=== PATIENT | female | born 1985 | race Caucasian/White ===

== ENCOUNTER 2016-07-22 21:17 | Emergency (ER) ==
[2016-07-22] MEDS ORDERED: DILAUDID 1 MG/ML SYRINGE IVP STA (21:22)
[2016-07-22] MEDS ORDERED: SODIUM CHLORIDE 1,000 ML IV STA (21:22)
[2016-07-22] MEDS ORDERED: PHENERGAN 25 MG/ML VIAL 25 MG in SODIUM CHLORIDE 50 ML IV STA (21:22)
[2016-07-22 21:27] VITALS: BP 144/85; TEMP 99; BMI 24.3
[2016-07-22 21:40] LABS: BASOPHILS % (AUTO) 0.4 % (0.0-3.0); EOSINOPHILS # (AUTO) 0.1 K/ul (0.0-0.7); HEMATOCRIT 41.7 % (37.0-47.0); HEMOGLOBIN 13.7 g/dl (12.0-16.0); IMMATURE GRANULOCYTE % (AUTO) 0.3 % (0.0-5.0); LYMPHOCYTES # (AUTO) 1.6 K/uL (0.60-3.4); LYMPHOCYTES % (AUTO) 20.2 (10.0-50.0); MEAN CORPUSCULAR HEMOGLOBIN 29.5 pg (27.0-31.0); MEAN CORPUSCULAR HGB CONC 32.9 (31.8-35.4); MEAN CORPUSCULAR VOLUME 89.9 fl (81.0-99.0); MONOCYTES # (AUTO) 0.8 K/uL (0.4-2.0); MONOCYTES % (AUTO) 9.6 (0-10); NEUTROPHILS # (AUTO) 5.4 K/ul (2.0-6.9); NEUTROPHILS % (AUTO) 68.5; PLATELET COUNT 239 10^3/uL (140-440); RED BLOOD COUNT 4.64 10^6/ul (4.20-5.40); WHITE BLOOD COUNT 7.89 K/ul (4.6-10.2)
[2016-07-22] MEDS ORDERED: PHENERGAN 25 MG/ML VIAL ONE (21:48)
[2016-07-22 21:52] LABS: SERUM PREGNANCY INTERNAL QC INTERNAL QC VALID
[2016-07-22 21:53] LABS: ADD URINE MICROSCOPIC YES; BILIRUBIN,URINE Negative (NEGATIVE); KETONES,URINE Negative (NEGATIVE); LEUKOCYTE ESTERASE ,URINE Negative (NEGATIVE); NITRITE,URINE Negative (NEGATIVE); PROTEIN,URINE Negative (NEGATIVE); URINE, BLOOD Trace-intact (NEGATIVE)
[2016-07-22 22:11] LABS: ALBUMIN 3.7 g/dL (3.4-5.0); ALBUMIN/GLOBULIN RATIO 1.16; ANION GAP 13.7; BILIRUBIN,TOTAL 0.47 mg/dL (0.00-1.20); BUN/CREATININE RATIO 11.68; CREATININE 0.77 mg/dL (0.60-1.30); POTASSIUM 3.7 mmol/L (3.5-5.10); TOTAL PROTEIN 6.9 g/dL (6.4-8.2)
--- NOTE | 2016-07-22 22:47 | CT ---
EXAM: CT scan abdomen pelvis with contrast HISTORY: Upper abdominal pain with nausea COMPARISON: CT scan abdomen pelvis 02/27/2014 FINDINGS: Contiguous axial images obtained through the abdomen pelvis following uneventful initiati on intravenous contrast utilizing 3-mm collimation. Sagittal and coronal reconstructions were image d and reviewed.. There are bilateral breast implants. The visualized lung bases are clear.. Gallb ladder is fluid filled without cholelithiasis. The liver, pancreas, spleen and adrenal glands have normal enhanced CT appearance. Kidneys excrete contrast in a normal fashion bilaterally. The abdom inal aorta is normal in course and caliber. Appendicolith in the distal appendix periappendiceal in flammatory change. There is umbilical hernia containing only fat.. Free fluid seen in the dependen t pelvis.. Bone windows reveals no evidence of lytic or blastic lesions. IMPRESSION: No acute intra-abdominal findings. Small amount free fluid seen in the dependent pelvis. Umbilical hernia containing only fat. There is an appendicolith within an otherwise normal appendix.
--- NOTE | 2016-07-22 23:20 | ED.PDOC ---
General ED Provider: Dr. ZACARIAS PATRICK-ER Chief Complaint: Abdominal Pain Stated Complaint: it my gb Time Seen by Physician: 23:18 Mode of Arrival: Walk-In Information Source: Patient Exam Limitations: No limitations Primary Care Provider: ZACARIAS PATRICK Nursing and Triage Documentation Reviewed and Agree: Yes GI Complaint Exam - Abdominal Pain Complaint/Exam Onset: Gradual Duration: 24hrs Symptoms Are: Still present Timing: Constant Initial Severity: Mild Current Severity: Mild Location of Pain: Discrete Radiates To: Reports: Back Character: Reports: Dull, Aching Aggravating: Reports: Eating Alleviating: Reports: None Associated Signs and Symptoms: Reports: Back pain, Nausea, Vomiting. Denies: Diaphoresis, Fever, Cough, Chest pain, Dizziness, Constipation, Blood in stool, Dysuria, Urinary frequency, Decreased urine output, Decreased appetite, Vaginal bleeding, Vaginal discharge, Diarrhea, Sore throat, Decreased activity AAA Risk Factors: Reports: None Cardiac Risk Factors: Reports: None Ectopic Risk Factors: Reports: None Ovarian Torsion Risk Factors: Reports: Reproductive age Surgical Obstruction Risk Factors: Reports: None Related Surgical History: Reports: None Patient Rh Status: Unknown Abdominal Findings: Present: None Differential Diagnoses: Constipation, Pancreatitis, UTI Review of Systems - Review Of Systems Constitutional: Reports: No symptoms Eyes: Reports: No symptoms Ears, Nose, Mouth, Throat: Reports: No symptoms Respiratory: Reports: No symptoms Cardiac: Reports: No symptoms GI: Reports: Abdominal pain, Nausea : Reports: No symptoms Musculoskeletal: Reports: No symptoms Skin: Reports: No symptoms Neurological: Reports: No symptoms Endocrine: Reports: No symptoms Hematologic/Lymphatic: Reports: No symptoms All Other Systems: Reviewed and Negative Past Medical History - Past Medical History Endocrine: Reports: Unknown Cardiovascular: Reports: Unknown Respiratory: Reports: Unknown Hematological: Reports: Unknown Gastrointestinal: Reports: Unknown Genitourinary: Reports: Unknown Neuro/Psych: Reports: Unknown Musculoskeletal: Reports: Unknown Cancer: Reports: Unknown Last Menstrual Period: 3 WEEKS AGO - Surgical History General Surgical History: Reports: Unknown - Family History Family History: Reports: Unknown - Social History Smoking Status: Never smoker Hx Substance Use: No Alcohol Screening: None Lives: With family - Immunizations Tetanus Shot up to Date: Yes Physical Exam - Physical Exam Appearance: Well-appearing, No pain distress, Well-nourished Pain Distress: Moderate Eyes: EUGENIO, EOMI, Conjunctiva clear ENT: Ears normal, Nose normal, Oropharynx normal Neck: Supple Respiratory: Airway patent Cardiovascular: RRR, Pulses normal, No rub, No murmur GI/: Soft, No masses, Bowel sounds normal, No Organomegaly, Tender Musculoskeletal: Normal strength Skin: Warm, Dry, Normal color Neurological: Sensation intact, Motor intact, Reflexes intact, Cranial nerves intact, Alert, Oriented Psychiatric: Affect appropriate Interpretation - Radiology Interpretation Radiology Interpretation By: Radiologist Radiology Results: Negative Exam Interpreted: CT Scan Re-Evaluation - Re-Evaluation Time of Re-Evaluation: 23:20 Status: Improved Vital Signs Stable: Yes Pain Level: 0 Appearance: NAD Lungs: Clear Skin: Warm and Dry Neuro: Alert and Oriented X3 CV: RRR Critical Care Note - Critical Care Note Total Time (mins): 0 Course - Course Hematology/Chemistry: 07/22/16 21:39 07/22/16 21:39 Orders, Labs, Meds: Lab Review 07/22/16 07/22/16 21:39 21:43 WBC 7.89 RBC 4.64 Hgb 13.7 Hct 41.7 MCV 89.9 MCH 29.5 MCHC 32.9 RDW Coeff of Omega 12.1 Plt Count 239 Immature Gran % (Auto) 0.3 Neut % (Auto) 68.5 Lymph % (Auto) 20.2 [place] % (Auto) 9.6 Eos % (Auto) 1.0 Baso % (Auto) 0.4 Immature Gran # (Auto) 0.0 Neut # 5.4 Lymph # 1.6 [place] # 0.8 Eos # 0.1 Baso # 0.0 Sodium 138 Potassium 3.7 Chloride 104 Carbon Dioxide 24 Anion Gap 13.7 BUN 9 Creatinine 0.77 Estimated GFR (MDRD) 88.00 BUN/Creatinine Ratio 11.68 Glucose 111 H Calcium 9.0 Total Bilirubin 0.47 AST 14 L ALT 22 Alkaline Phosphatase 82 Total Protein 6.9 Albumin 3.7 Globulin 3.2 Albumin/Globulin Ratio 1.16 Amylase 39 Lipase 20 Serum , Qual Negative Urine Color Yellow Urine Clarity Clear Urine pH 7.0 Ur Specific [place] 1.015 Urine Protein Negative Urine Glucose (UA) Negative Urine Ketones Negative Urine Blood Trace-intact Urine Nitrite Negative Urine Bilirubin Negative Urine Urobilinogen 0.2 Ur Leukocyte Esterase Negative Urine Microscopic RBC 0-2 Ur Squamous Epith Cells 5-10 Orders Category Date Time Status NPO REMINDER: IMAGING ONCE CARE 07/22/16 21:23 Completed ED IV/MEDIPORT/POWERPORT .ONCE EMERGENCY 07/22/16 21:22 Active AMYLASE Stat LAB 07/22/16 21:39 Completed CBC W/ AUTO DIFF Stat LAB 07/22/16 21:39 Completed COMPREHENSIVE METABOLIC PANEL Stat LAB 07/22/16 21:39 Completed LIPASE Stat LAB 07/22/16 21:39 Completed SERUM Stat LAB 07/22/16 21:39 Completed URINALYSIS C & S IF INDICATED Stat LAB 07/22/16 21:43 Completed 0.9 % Sodium Chloride [Saline Flush] MEDS 07/22/16 21:22 Ordered 1 syr IVF PRN PRN Hydromorphone HCl [Dilaudid 1 mg/ml Syringe] MEDS 07/22/16 21:22 Discontinued 1 mg IVP ONCE STA Promethazine HCl [Phenergan 25 mg/ml Vial] MEDS 07/22/16 21:48 Discontinued 25 mg .ROUTE .STK-MED ONE Promethazine HCl [Phenergan 25 mg/ml Vial] 25 mg MEDS 07/22/16 21:22 Discontinued 0.9 % Sodium Chloride [Sodium Chloride] 50 ml IV ONCE Sodium Chloride 0.9% [Sodium Chloride] 1,000 ml MEDS 07/22/16 21:22 Active IV 100 mls/hr CT ABDOMEN/PELVIS W CONTRAST Stat RADS 07/22/16 21:23 Completed Medications Generic Name Dose Route Start Last Admin Trade Name Freq PRN Reason Stop Dose Admin Sodium Chloride 1,000 mls @ 100 mls/hr 07/22/16 21:22 07/22/16 21:45 Sodium Chloride IV 07/23/16 07:21 100 mls/hr .Q10H STA Administration Sodium Chloride 1 syr 07/22/16 21:22 07/22/16 22:00 Saline Flush IVF 1 syr PRN PRN Administration To flush IV Discontinued Medications Generic Name Dose Route Start Last Admin Trade Name Freq PRN Reason Stop Dose Admin Hydromorphone HCl 1 mg 07/22/16 21:22 07/22/16 21:52 Dilaudid 1 Mg/Ml Syringe IVP 07/22/16 21:23 1 mg ONCE STA Administration Promethazine HCl 25 mg/ Sodium 51 mls @ 75 mls/hr 07/22/16 21:22 07/22/16 21: 51 Chloride IV 07/22/16 22:02 75 mls/hr ONCE STA Administration Vital Signs: Temp Pulse Resp BP Pulse Ox 07/22/16 21:18 99 F 93 H 18 144/85 H 100 Departure - Departure Time of Disposition: 23:20 Disposition: HOME SELF-CARE Discharge Problem: Abdominal pain Qualifiers: Abdominal location: upper abdomen, unspecified Qualifier Code: (R10.10) Upper abdominal pain, unspecified Instructions: Acute Abdominal Pain (ED) Condition: Good Pt referred to PMD for follow-up: Yes Additional Instructions: librax q 8hrs prn pain #21--low fat diet--call my office tomorrow to arrange gb studies Allergies/Adverse Reactions: Allergies No Known Allergies Allergy (Verified 07/22/16 21:24) Home Medications: Ambulatory Orders 1 [No Reported Medications] 02/27/14 Disposition Discussed With: Patient, Family
== END 2016-07-22 23:32 | disposition home or self-care (01) ==
LOC: ED 21:17
DX: R10.10 Upper abdominal pain, unspecified (principal); R11.2 Nausea with vomiting, unspecified; M54.9 Dorsalgia, unspecified
CPT/HCPCS: 36415; 80053; 81001; 82150; 83690; 84703; 85025; 96361; 96365; 96375; 99283

== ENCOUNTER 2016-07-24 07:23 | Outpatient (CLI) ==
--- NOTE | 2016-07-24 08:26 | US ---
EXAM: Ultrasound abdomen limited. HISTORY: Abdominal pain. COMPARISON: CT 07/22/2016. TECHNIQUE: Abdominal, real time with image documentation: limited (eg, single organ, quadrant, fol low-up) FINDINGS: The liver demonstrates homogeneous echotexture without intrahepatic biliary dilatation. Portal venous flow is normal in direction. The gallbladder is without shadowing stones, wall thicke dorothy or pericholecystic fluid. Common duct measures approximately 0.4 cm. Visualized portions of t he pancreas are unremarkable. IMPRESSION: No sonographic abnormality of the liver, gallbladder or biliary system.
== END 2016-07-24 07:24 | disposition home or self-care (01) ==
LOC: RAD 07:23
PROVIDERS: ATTEND Family Medicine
DX: R10.10 Upper abdominal pain, unspecified (principal)